=== PATIENT | female | born 1975 | race Caucasian/White ===

== ENCOUNTER → 2022-07-15 09:36 | Outpatient (BNVA) | payer BC, SELFPAY | PROVIDERS: PCP Nurse Practitioner Primary Care; Visit Provider Physician Assistant Surgical | DX: Z13.89 Encounter for screening for other disorder (principal) ==

== ENCOUNTER → 2022-08-03 12:55 | Outpatient (BNVA) | payer BC, SELFPAY | PROVIDERS: PCP Nurse Practitioner Primary Care; Visit Provider Physician Assistant Surgical | DX: Z13.89 Encounter for screening for other disorder (principal) ==

== ENCOUNTER 2022-08-16 07:04 | Outpatient (REF) | payer BC, SELFPAY ==
[2022-08-16 07:18] LABS: MANUAL DIFF FLAG NO
[2022-08-16 07:35] LABS: Basophils Percent Auto 0.5 % (0-2); Eosinophils Absolute Auto 0.1 X10*3/uL (0.0-0.4); Eosinophils Percent Auto 1.4 % (0-4); Hematocrit 37.8 % (37.0-47.0); Imm Gran Abs Auto 0.01 X10*3/uL (0.00-0.03); Imm Gran Pct Auto 0.2 % (0.0-0.4); Lymphocytes Absolute Auto 1.7 X10*3/uL (1.2-4.9); Lymphocytes Percent Auto 37.8 % (20-40); Mean Corpuscular HGB Conc 34.4 g/dl (31.0-35.0); Mean Corpuscular Hemoglobin 29.7 pg (27.0-33.0); Mean Corpuscular Volume 86.3 fL (80.0-98.0); Mean Platelet Volume 9.4 fL (9.4-12.3); Monocytes Absolute Auto 0.4 X10*3/uL (0.1-1.2); Monocytes Percent Auto 8.8 % (2-11); Neutrophils Absolute Auto 2.3 x10*3/uL (2.0-8.3); Neutrophils Percent Auto 51.3 % (45-73); Platelet Count 246 X10*3/uL (160-400); Red Blood Count 4.38 X10*6/uL (4.20-5.50); Red Cell Distribution Width 11.6 % (11.0-16.0); White Blood Count 4.4 X10*3/uL (4.8-10.8)
[2022-08-16 11:02] LABS: Estimated Average Glucose 103 mg/dL; Hemoglobin A1c % 5.2 %
[2022-08-16 12:15] LABS: Alanine Aminotransferase 19 U/L (0-31); Albumin Level 4.3 g/dL (3.5-5.0); Alkaline Phosphatase 61 U/L (39-117); Anion Gap 10 (12-20); Aspartate Amino Transferase 16 U/L (5-31); Bilirubin Total 0.5 mg/dL (0.0-1.0); Blood Urea Nitrogen 17 mg/dL (9-16); C Reactive Protein 0.88 mg/dL (< or = 0.50); Calcium 9.6 mg/dL (8.4-10.2); Carbon Dioxide 30 mmol/L (22-29); Chloride 106 mmol/L (96-108); Cholesterol 142 mg/dL; Estimated Glomerular Filt Rate > 60; Glucose Random 118 mg/dL (60-115); HDL Cholesterol 55 mg/dL; Iron 98 mcg/dL (30-160); LDL Cholesterol Calculated 79 mg/dl; Percent Iron Saturation 36 % (15-50); Potassium 4.8 mmol/L (3.3-5.1); Sodium 141 mmol/L (135-145); Total Iron Binding Capacity 273 mcg/dL (228-428); Total Protein 6.9 g/dL (6.5-8.0); Triglycerides 43 mg/dL; Unsaturated Iron Binding 175 ug/dL
[2022-08-16 12:30] LABS: Ferritin 43 ng/mL (10-250); Folate 12.1 ng/mL (> or = 4.0); Insulin 6 uU/mL (2-29); Vitamin B12 324 pg/mL (200-900); Vitamin D 25-OH Total 29.1 ng/mL (>30)
[2022-08-18 17:03] LABS: Calcium (PTHI) 9.4 mg/dL (8.6-10.2); PTHI 40 pg/mL (16-77)
[2022-08-21 15:17] LABS: Zinc 78 mcg/dL (60-130)
[2022-08-22 06:32] LABS: Vitamin B1 9 nmol/L (8-30)
[2022-08-24 01:04] LABS: Vitamin A 36 mcg/dL (38-98)
== END 2022-08-16 07:05 | disposition home or self-care (01) ==
LOC: HO.LAB 07:04
PROVIDERS: PCP Nurse Practitioner Primary Care; Visit Provider Physician Assistant Surgical
DX: E66.9 Obesity, unspecified (principal); E63.9 Nutritional deficiency, unspecified
CPT/HCPCS: 36415; 80053; 80061; 82306; 82607; 82728; 82746; 83036; 83525; 83540; 83970; 84425; 84443; 84590; 84630; 85025; 86140

== ENCOUNTER → 2022-08-30 14:56 | Outpatient (BNVA) | payer BC, SELFPAY | PROVIDERS: PCP Nurse Practitioner Primary Care; Visit Provider Physician Assistant Surgical ==

== ENCOUNTER → 2022-09-19 15:41 | Outpatient (BNVA) | payer BC, SELFPAY | PROVIDERS: PCP Nurse Practitioner Primary Care; Visit Provider Dietitian, Registered | DX: E66.9 Obesity, unspecified (principal); Z71.3 Dietary counseling and surveillance; Z68.41 Body mass index [BMI] 40.0-44.9, adult | CPT/HCPCS: 97802 ==

== ENCOUNTER 2022-10-18 08:58 | Outpatient (AMB) | payer BC, SELFPAY ==
[2022-10-18 09:08] VITALS: BP 137/77; PULSE 78; TEMP 36.5; O2SAT 96; BMI 38.7
--- NOTE | 2022-10-18 09:08 | A.OFFVIS_ITS ---
Intake VS Expanded 10/18/22 09:08 Height 5 ft 2 in Weight 211 lb 9.6 oz BMI 38.7 BP 137/77 Blood Pressure Location Rt brachial Blood Pressure Position Sitting Pulse 78 Pulse Source Pulse Oximeter Temp 97.7 F Temperature Source Temporal Artery Scan Pulse Oximetry 96 Oxygen Delivery Method Room Air Body Fat 95.2 Body Fat Percentage 45.0 Free Fat Mass 116.2 Muscle Mass 110.2 Visceral Mass 13.0 Water Mass 82.8 BMR 1,632 Intake Visit Reasons: [facility] follow up Allergies No Known Allergies Allergy (Verified 10/18/22 09:08) Medication List - Last Reconciled 10/18/22 by LAUREN Hermosillo cholecalciferol (vitamin D3) 25 mcg PO DAILY [COLLAGEN PO] fluoxetine 10 mg PO DAILY loratadine 10 mg PO DAILY losartan 50 mg PO DAILY vitamin A palmitate 10,000 units PO DAILY HPI HPI Comments History of Present Illness Details Pt presents for followup of [facility]. Visit #3 Pt notes that she was recently diagnosed with insulin resistance. Had a 2 hour glucose tolerance test. Waiting for authorization for Roxy. Starting weight: 216 Weight last visit: 213 Total weight loss: 4.4lbs Current meal plan: Coffee and hard boiled egg or might have yogurt goes to gym 11am shake - Atkins (or Isopure), will add almond milk and frozen berries 1pm salad Atkins bar protein bar sometimes Salad with protein - palm size of protein (sometimes was skipping dinner but doing better with this or will have a protein shake) Exercise: goes to gym after breakfast, 4-5x/week- 30 min weight training, stairmaster 10- 15 min, bike or treadmill PFSH Surgical History Hx of section Hx of cholecystectomy Family History Mother High cholesterol Stroke Father No problems noted. Sister No problems noted. Son No problems noted. Daughter No problems noted. Social History Alcohol intake: current Alcohol intake frequency: holidays/special occasions on ly Patient Tobacco Use Status: Never used Tobacco Assessment & Plan Assessment & Plan (1) Obesity: Code(s): E66.9 - Obesity, unspecified (2) Anxiety: Code(s): F41.9 - Anxiety disorder, unspecified (3) Depression: Code(s): F32.A - Depression, unspecified (4) Hypertension: Code(s): I10 - Essential (primary) hypertension Plan Reviewed some recommendations for insulin resistance- being careful about total carb intake, avoid simple carbs/sugars, watch fruit intake and choose lower sugar fruits/veg. For protein bars, try Atkins or Pure bars. Pt awaiting Wegovy approval. If Wegovy ineffective, we discussed that she is still a candidate for bariatric surgery. RTC 1 month. Encouraged pt to reach out between appts with any questions or concerns. Patient is obese and is not considered stable at this time. I spent a total of 30 minutes reviewing/updating records, examining the patient and counseling the patient on weight management as detailed above. Coding Level of Care Code Est Pt Level 4 (23002) Diagnoses Obesity E66.9 Anxiety F41.9 Depression F32.A Hypertension I10
== END 2022-10-18 09:46 | disposition home or self-care (01) ==
PROVIDERS: PCP Nurse Practitioner Primary Care; Visit Provider Physician Assistant Surgical
DX: E66.9 Obesity, unspecified (principal); Z68.38 Body mass index [BMI] 38.0-38.9, adult; F41.9 Anxiety disorder, unspecified; I10 Essential (primary) hypertension; F33.0 Major depressive disorder, recurrent, mild
CPT/HCPCS: 99214

== ENCOUNTER → 2022-10-18 08:58 | Outpatient (BNVA) | payer BC, SELFPAY | PROVIDERS: PCP Nurse Practitioner Primary Care; Visit Provider Physician Assistant Surgical ==